=== PATIENT | female | born 1960 | race Caucasian/White ===

== ENCOUNTER 2016-10-30 04:59 | Emergency (ER) | payer OTHER ==
[2016-10-30 05:51] LABS: BASOPHIL 0.2 % (0-2); EOSINOPHIL 4.6 % (0-5); HCT 35.4 % (37.0-47.0); HGB 11.5 g/dl (12.5-16.0); LYMPHOCYTE 26.9 % (15-48); MCH 26.8 pg (25.0-31.0); MCHC 32.5 g/dL (32.0-36.0); MCV 82.5 fL (78.0-100.0); MONOCYTE 6.6 % (0-12); MPV 9.3 fL (6.0-9.5); NEUTROPHIL 61.7 % (41-80); PLT 256 K/uL (150-400); RBC 4.29 M/uL (4.20-5.40); WBC 6.1 K/uL (4.0-10.5)
[2016-10-30 06:02] LABS: BILIRUBIN - TOTAL 0.4 mg/dL (0.1-1.0); GLOBULIN (CALCULATION) 2.8 g/dL (2.2-4.2); POTASSIUM 3.6 mmol/L (3.5-5.1); TOTAL PROTEIN 6.8 g/dL (6.4-8.3)
[2016-10-30 07:54] LABS: BILIRUBIN NEGATIVE (NEGATIVE); BLOOD NEGATIVE Ery/uL (NEGATIVE); CLARITY CLEAR (CLEAR); COLOR YELLOW (YELLOW); GLUCOSE (U) NORMAL (NORMAL); KETONE (U) NEGATIVE (NEGATIVE); LEUKOCYTES NEGATIVE Leu/uL (NEGATIVE); NITRITE NEGATIVE (NEGATIVE); PROTEIN NEGATIVE (NEGATIVE); SPECIFIC GRAVITY 1.025 (1.001-1.030); UROBILINOGEN 0.2 mg/dL (0.2-1.0)
== END 2016-10-30 08:59 | disposition home or self-care (01) ==
LOC: FER 04:59
PROVIDERS: Emergency Medicine Emergency Medical Services
DX: E11.9 Type 2 diabetes mellitus without complications (principal); I10 Essential (primary) hypertension; Z87.828 Personal history of other (healed) physical injury and trauma; Z79.84 Long term (current) use of oral hypoglycemic drugs; Z98.890 Other specified postprocedural states
CPT/HCPCS: 36415; 70450; 72125; 72131; 80053; 81003; 85025; J1100; J1170; J1885; J2765; J2800